=== PATIENT | male | born 1950 | race Caucasian/White ===

== ENCOUNTER 2018-04-16 08:47 | Emergency (ER) | payer BC ==
[~2018-04-16 08:47] MED LIST changes: -CLOP75TA
[2018-04-16 09:06] LABS: PLATELET COUNT, AUTOMATED 280 K/uL (150-450)
[2018-04-16] MEDS ORDERED: ONDANSETRON 4 MG/2 ML VIAL ONE (09:13)
[2018-04-16 09:15] LABS: INR 0.92
--- NOTE | 2018-04-16 09:41 | RADIOLOGY IMAGING REPORT ---
FACILITY: [facility] PATIENT NAME: Mitchell Hua : 1950 MR: [id number] V: [id number] EXAM DATE: [id number] ORDERING PHYSICIAN: NELIDA KAHN TECHNOLOGIST: Location: [facility] Patient: Mitchell Hua : 1950 Visit/Account:[id number] Date of Sevice: 04/16/[address] scan without contrast HISTORY: Possible stroke COMPARISONS: January 30, [address] report, images unavailable at the time of dictation. TECHNIQUE: Non-contrast head CT was performed with sagittal and coronal reformations. One of the following dose optimization techniques was utilized in the performance of this exam: autom ated exposure control; adjustment of the mA and/or kV according to patient size; or use of iterative reconstruction technique. Specific details can be referenced in the facility's radiology CT exam ope rational policy. FINDINGS: There is no intracranial hemorrhage, hydrocephalus or midline shift. The basal cisterns, tariq-white differentiation, and convexity sulci are maintained. Normal orbital soft tissues. Unchanged chronic right parietal scalp soft tissue thickening. Probable perivascular space in the anterior right thalamus region is unchanged measuring 6 mm. Multi ple bilateral additional basal ganglia perivascular spaces are unchanged. 3.5 mm hypodensity in the right frontal deep white matter, axial image 35 is new. Clear mastoid air cells. Opacification of the posterior left ethmoid air cell. Normal osseous struc tures. IMPRESSION: 1. No acute intracranial hemorrhage. 2. New 3.5 mm hypodensity in the right frontal deep white matter is favored to be chronic and may rep resent a chronic lacunar infarct or residua of chronic small vessel ischemic change. If there is concern for acute ischemia in this area brain MR may be warranted for further characteriz ation. 3. Multiple unchanged basal ganglia and anterior right thalamic perivascular spaces. Results were called to NELIDA KAHN on 04/16/2018 9:33 AM. Report Dictated By: Wilmar Hernández MD at 04/16/2018 9:22 AM Report E-Signed By: Wilmar Hernández MD at 04/16/2018 9:37 AM WSN:[id number]
--- NOTE | 2018-04-16 09:45 | RADIOLOGY IMAGING REPORT ---
FACILITY: [facility] PATIENT NAME: Mitchell Hua : 1950 MR: [id number] V: [id number] EXAM DATE: [id number] ORDERING PHYSICIAN: NELIDA KAHN TECHNOLOGIST: [place] [facility] [place] Hua : 1950 Visit/Account:[id number] Date of Sevice: 04/16/2018 EXAMINATION: CT Cervical spine without intravenous contrast HISTORY: Left arm weakness COMPARISON: None TECHNIQUE: Axial images were obtained from the skull base through the upper thoracic spine without I V contrast administration. Coronal and sagittal reformatted images were generated from the axial sour ce data. One of the following dose optimization techniques was utilized in the performance of this exam: autom ated exposure control; adjustment of the mA and/or kV according to patient size; or use of iterative reconstruction technique. Specific details can be referenced in the facility's radiology CT exam ope rational policy. FINDINGS: Vertebral bodies and posterior elements: Normal vertebral body heights. No fracture or osseous destr uction. Alignment: Normal. Disc Spaces: Mild multilevel disc space degeneration and uncovertebral arthropathy most pronounced at C3-4. Multilevel degenerative cervical foraminal narrowing. Soft tissues: Calcified degenerative pannus posterior to the dens. Visualized upper chest: Normal. IMPRESSION: No acute fracture or acute abnormality. Report Dictated By: Wilmar Hernández MD at 04/16/2018 9:28 AM Report E-Signed By: Wilmar Hernández MD at 04/16/2018 9:41 AM WSN:[id number]
[2018-04-16 09:51] VITALS: BP 143/95
[2018-04-16] MEDS ORDERED: CLOP75TA (09:51)
--- NOTE | 2018-04-16 09:59 | RADIOLOGY IMAGING REPORT ---
FACILITY: [facility] [place] PATIENT NAME: Mitchell Hua : 1950 MR: [id number] V: [id number] EXAM DATE: ORDERING PHYSICIAN: NELIDA KAHN TECHNOLOGIST: Location: [facility] Patient: Mitchell Hua : 1950 Visit/Account:[id number] Date of Sevice: 04/16/2018 EXAMINATION: CT head and neck angiogram HISTORY: Weakness TECHNIQUE: Noncontrast head CT was first performed with sagittal and coronal reformations. CT head an d neck angiogram was performed following the iv injection 75 mL Isovue-370. Sagittal and coronal MPR and coronal and axial MIPS reformats generated. Stenosis of the internal carotid arteries calculated using NASCET criteria. One of the following dose optimization techniques was utilized in the performance of this exam: autom ated exposure control; adjustment of the mA and/or kV according to patient size; or use of iterative reconstruction technique. Specific details can be referenced in the facility's radiology CT exam ope rational policy. COMPARISON: None. FINDINGS: Angiogram: Aortic arch and great vessels: Normal for age. Cervical Right CCA / ICA: Less than 10% proximal internal carotid artery stenosis secondary to athe rosclerotic plaque, otherwise normal for age. Cervical Left CCA / ICA: Normal for age. Vertebro-basilar: Arch origin of the left vertebral artery, normal for age. Internal carotid arteries from the skull base through cavernous carotid arteries: Normal for age. EMELY circulation: Normal. MCA circulation: Normal. CATCHER HELPER circulation: Normal. PICA/AICA/superior cerebellar arteries: Normal. Venous sinuses and peripheral intracranial vasculature: Normal. Intracranial structures: Normal. Neck soft tissues: Normal. Upper chest: Normal. Head and neck osseous structures: No acute finding. IMPRESSION: 1. Less than 10% proximal right internal carotid artery stenosis secondary to atherosclerotic plaque . 2. Otherwise normal for age head and neck arterial vasculature without arterial thrombosis, aneurysm or dissection. Report Dictated By: Wilmar Hernández MD at 04/16/2018 9:41 AM Report E-Signed By: Wilmar Hernández MD at 04/16/2018 9:54 AM WSN:[id number]
--- NOTE | 2018-04-16 09:59 | RADIOLOGY IMAGING REPORT ---
[place] [facility] [place] NAME: Mitchell Hua : 1950 MR: [id number] V: [id number] EXAM DATE: ORDERING PHYSICIAN: NELIDA KAHN TECHNOLOGIST: Location: [facility] - [place], [place] Patient: Mitchell Hua : 1950 Visit/Account:[id number] Date of Sevice: 04/16/2018 EXAMINATION: CT head and neck angiogram HISTORY: Weakness TECHNIQUE: Noncontrast head CT was first performed with sagittal and coronal reformations. CT head an d neck angiogram was performed following the iv injection 75 mL Isovue-370. Sagittal and coronal MPR and coronal and axial MIPS reformats generated. Stenosis of the internal carotid arteries calculated using NASCET criteria. One of the following dose optimization techniques was utilized in the performance of this exam: autom ated exposure control; adjustment of the mA and/or kV according to patient size; or use of iterative reconstruction technique. Specific details can be referenced in the facility's radiology CT exam ope rational policy. COMPARISON: None. FINDINGS: Angiogram: Aortic arch and great vessels: Normal for age. Cervical Right CCA / ICA: Less than 10% proximal internal carotid artery stenosis secondary to athe rosclerotic plaque, otherwise normal for age. Cervical Left CCA / ICA: Normal for age. Vertebro-basilar: Arch origin of the left vertebral artery, normal for age. Internal carotid arteries from the skull base through cavernous carotid arteries: Normal for age. EMELY circulation: Normal. MCA circulation: Normal. AERONAUTICAL DESIGN ENGINEER circulation: Normal. PICA/AICA/superior cerebellar arteries: Normal. Venous sinuses and peripheral intracranial vasculature: Normal. Intracranial structures: Normal. Neck soft tissues: Normal. Upper chest: Normal. Head and neck osseous structures: No acute finding. IMPRESSION: 1. Less than 10% proximal right internal carotid artery stenosis secondary to atherosclerotic plaque . 2. Otherwise normal for age head and neck arterial vasculature without arterial thrombosis, aneurysm or dissection. Report Dictated By: Wilmar Hernández MD at 04/16/2018 9:41 AM Report E-Signed By: Wilmar Hernández MD at 04/16/2018 9:54 AM WSN:[id number]
[2018-04-16] MEDS ORDERED: DIPHTH/TETANUS/ACEL. PERTUSSIS IM ONLY ONE (10:00)
[2018-04-16] MEDS ORDERED: NS(*) 0.9% 50 ML BAG 50 ML ONE (10:44)
[2018-04-16] MEDS ORDERED: IOPAMIDOL 76% 75 ML INFUS BTL 75 ML ONE (10:44)
--- NOTE | 2018-04-16 12:34 | EKG ---
[place] [facility] [place] NAME: MIRTHA SOOD : [id number] MR: [id number] V: [id number] EXAM DATE: ORDERING PHYSICIAN: NELIDA KAHN TECHNOLOGIST: HUSSAIN Test Reason : STROKE ALERT Blood Pressure : / mmHG Vent. Rate : 056 BPM Atrial Rate : 110 BPM P-R Int : 220 ms QRS Dur : 102 ms QT Int : 470 ms P-R-T Axes : 028 -39 007 degrees QTc Int : 453 ms Sinus rhythm with 1st degree AV block Left axis deviation T flattening/inversion consistent with inferior ischemia vs normal variant No previous ECGs available Confirmed by FERN HOWELL ([id number]) on 04/16/2018 8:43:32 PM Referred By: Confirmed By:FERN HOWELL
--- NOTE | 2018-04-16 15:09 | ER Report ---
History and Physical Time Seen By MD: 15:09 Hx. of Stated Complaint: pt fell in garage this morning and could not get up, thinks about 445 am, laid on couch, when came home pt had L side facial droop and L side weakness HPI/ROS CHIEF COMPLAINT: Stroke alert Patient is a 67-year-old male here with left-sided facial droop, slurred speech, left upper and lower extremity weakness which started approximately 445. Last known normal was when his left for work shortly prior to that time. Patient reports having mechanical fall at approximately 445 when he called his who came home from work and noticed that he had a left-sided facial droop and weakness. EMS responded to the scene and called us while in route at which time a stroke alert was called, the patient was taken directly to CAT scan her and tele stroke was called. Patient was determined to be outside of the window for TPA. In the meantime, CTA head and neck was found to be unremarkable. Patient was transferred via helicopter to [facility] for neurological care and admission to the hospitalist service. Patient was hemodynamically stable at time of transfer. HISTORY OF PRESENT ILLNESS: REVIEW OF SYSTEMS: Constitutional: No fever, no chills. Eyes: No discharge, + right gaze preference ENT: No sore throat, + slurred speech, left facial droop Cardiovascular: No chest pain, no palpitations. Respiratory: No cough, no shortness of breath. Gastrointestinal: No abdominal pain, no vomiting. Genitourinary: No hematuria. Musculoskeletal: No back pain. Skin: No rashes. Neurological: + left facial droop, + left upper and lower extremity weakness, slurred speech Allergies: Coded Allergies: morphine (Verified Adverse Reaction, Intermediate, VOMITING, 10/11/15) Home Meds Reported Medications Clopidogrel Bisulfate (CLOPIDOGREL) 75 Mg Tablet 04/16/18 Metoprolol Tartrate (METOPROLOL TARTRATE) 25 Mg Tablet, 2 TAB PO QDAY, TAB 10/11/15 Lisinopril (LISINOPRIL) 40 Mg Tablet, 40 MG PO QDAY, TAB 10/11/15 Levothyroxine Sodium (LEVOTHYROXINE SODIUM) 50 Mcg Tablet, 50 MCG PO QDAY, TAB 10/11/15 Hydrochlorothiazide (HYDROCHLOROTHIAZIDE) 25 Mg Tablet, 1 TAB PO QDAY, TAB 10/11/15 Emerson-3 Fatty Acids (FISH OIL) 500 Mg Capsule, 500 MG PO, CAPSULE 10/11/15 Cetirizine Hcl (ZYRTEC) 10 Mg Capsule, 10 MG PO QDAY, CAPSULE 10/11/15 Atorvastatin Calcium (LIPITOR) 40 Mg Tablet, 2 TAB PO QDAY, TAB 10/11/15 Discontinued Reported Medications Ranitidine Hcl (ZANTAC) 150 Mg Tablet, 150 MG PO BID, TAB 10/11/15 Oxycodone Hcl/Acetaminophen (OXYCODONE-ACETAMINOPHEN 5-325) 1 Each Tablet, 2 EACH PO Q4H, TAB 10/11/15 Discontinued Scripts Cyclobenzaprine Hcl (CYCLOBENZAPRINE HCL) 10 Mg Tablet, 10 MG PO TID for Muscle Relaxant, #15 TAB Prov:VALERY UNDERWOOD DO 10/11/15 Hx Smoking: No Smoking Status: Former Smoker Exposure to Second Hand Smoke?: No Hx Substance Use Disorder: No Hx Alcohol Use: Yes (OCC USE) Constitutional Vital Sign - Last 24 Hours 04/16/18 04/16/18 04/16/18 04/16/18 08:47 08:52 08:53 08:56 Temp 97.1 Pulse ? 59 Resp 16 B/P (MAP) 132/73 (92) 145/97 Pulse Ox 94 O2 Delivery Nasal Cannula 04/16/18 04/16/18 04/16/18 04/16/18 08:57 09:02 09:07 09:08 Pulse ? B/P (MAP) 145/97 (113) 04/16/18 04/16/18 04/16/18 04/16/18 09:12 09:17 09:22 09:27 Pulse 59 60 59 60 Resp 21 19 22 26 Pulse Ox 95 91 96 93 04/16/18 04/16/18 04/16/18 04/16/18 09:32 09:37 09:42 09:47 Pulse 57 ??? 60 61 Resp 17 26 21 10 Pulse Ox 95 95 94 94 04/16/18 04/16/18 04/16/18 04/16/18 09:51 09:52 10:02 10:07 Pulse ??? 63 ??? Resp 8 18 B/P (MAP) 143/95 (111) Pulse Ox 94 96 04/16/18 04/16/18 04/16/18 04/16/18 10:12 10:17 10:22 10:25 Pulse ? 04/16/18 10:38 O2 Flow Rate 1.0 Physical Exam General Appearance: The patient is alert, has no immediate need for airway protection and no signs of toxicity. anxious appearing Eyes: Pupils equal and round no pallor or injection. ENT, Mouth: + left facial droop, scattered facial abrasions primarily to left side of his face Respiratory: There are no retractions, lungs are clear to auscultation. Cardiovascular: Regular rate and rhythm. Gastrointestinal: Abdomen is soft and non tender, no masses, bowel sounds normal. Neurological: + left facial droop, left upper and lower extremity weakness, slurred speech with diminished sensation, right gaze preference Skin: Warm and dry, no rashes. Musculoskeletal: Neck is supple non tender. Extremities are nontender, nonswollen and have full range of motion. DIFFERENTIAL DIAGNOSIS: After history and physical exam differential diagnosis was considered for ischemic stroke, electrolyte abnormality, hypoglycemia, intracranial hemorrhage, atypical migraine Medical Decision Making Data Points Result Diagram: 04/16/18 0830 04/16/18 0830 Laboratory Hematology Test 04/16/18 08:30 04/16/18 10:09 Red Blood Count 5.79 M/uL (4.00-5.60) Mean Corpuscular Volume 88.2 fL (80.0-96.0) Mean Corpuscular Hemoglobin 29.5 pg (26.0-33.0) Mean Corpuscular Hemoglobin Concent 33.4 g/dL (32.0-36.0) Red Cell Distribution Width 14.6 % (11.5-14.5) Mean Platelet Volume 7.9 fL (7.2-11.1) Neutrophils (%) (Auto) 79.4 % (39.4-72.5) Lymphocytes (%) (Auto) 10.5 % (17.6-49.6) Monocytes (%) (Auto) 7.0 % (4.1-12.4) Eosinophils (%) (Auto) 1.9 % (0.4-6.7) Basophils (%) (Auto) 1.2 % (0.3-1.4) Nucleated RBC Relative Count (auto) 0.0 /100WBC Neutrophils # (Auto) 8.7 K/uL (2.0-7.4) Lymphocytes # (Auto) 1.2 K/uL (1.3-3.6) Monocytes # (Auto) 0.8 K/uL (0.3-1.0) Eosinophils # (Auto) 0.2 K/uL (0.0-0.5) Basophils # (Auto) 0.1 K/uL (0.0-0.1) Nucleated RBC Absolute Count (auto) 0.01 K/uL Peripheral Blood Smear No Y/N Prothrombin Time 12.3 seconds (12.0-14.4) Prothromb Time International Ratio 0.92 Activated Partial Thromboplast Time 30 seconds (23-35) Sodium Level 139 mmol/L (137-145) Potassium Level 3.8 mmol/L (3.5-5.0) Chloride Level 100 mmol/L (98-107) Carbon Dioxide Level 29 mmol/L (22-30) Blood Urea Nitrogen 33 mg/dl (9-21) Creatinine 1.10 mg/dl (0.66-1.25) Glomerular Filtration Rate Calc > 60.0 Random Glucose 103 mg/dl (75-110) Calcium Level 9.7 mg/dl (8.4-10.2) Total Bilirubin 0.7 mg/dl (0.2-1.3) Aspartate Amino Transf (AST/SGOT) 31 U/L (0-35) Alanine Aminotransferase (ALT/SGPT) 45 U/L (0-56) Alkaline Phosphatase 92 U/L (0-126) Troponin I < 0.012 ng/ml Total Protein 7.5 g/dl (6.3-8.2) Albumin 4.0 g/dl (3.5-5.0) Whole Blood Glucose 126 mg/DL (75-110) Chemistry Test 04/16/18 08:30 04/16/18 10:09 White Blood Count 11.0 k/uL (4.5-11.0) Red Blood Count 5.79 M/uL (4.00-5.60) Hemoglobin 17.1 g/dL (14.0-18.0) Hematocrit 51.1 % (42.0-52.0) Mean Corpuscular Volume 88.2 fL (80.0-96.0) Mean Corpuscular Hemoglobin 29.5 pg (26.0-33.0) Mean Corpuscular Hemoglobin Concent 33.4 g/dL (32.0-36.0) Red Cell Distribution Width 14.6 % (11.5-14.5) Platelet Count 280 K/uL (150-450) Mean Platelet Volume 7.9 fL (7.2-11.1) Neutrophils (%) (Auto) 79.4 % (39.4-72.5) Lymphocytes (%) (Auto) 10.5 % (17.6-49.6) Monocytes (%) (Auto) 7.0 % (4.1-12.4) Eosinophils (%) (Auto) 1.9 % (0.4-6.7) Basophils (%) (Auto) 1.2 % (0.3-1.4) Nucleated RBC Relative Count (auto) 0.0 /100WBC Neutrophils # (Auto) 8.7 K/uL (2.0-7.4) Lymphocytes # (Auto) 1.2 K/uL (1.3-3.6) Monocytes # (Auto) 0.8 K/uL (0.3-1.0) Eosinophils # (Auto) 0.2 K/uL (0.0-0.5) Basophils # (Auto) 0.1 K/uL (0.0-0.1) Nucleated RBC Absolute Count (auto) 0.01 K/uL Peripheral Blood Smear No Y/N Prothrombin Time 12.3 seconds (12.0-14.4) Prothromb Time International Ratio 0.92 Activated Partial Thromboplast Time 30 seconds (23-35) Glomerular Filtration Rate Calc > 60.0 Calcium Level 9.7 mg/dl (8.4-10.2) Total Bilirubin 0.7 mg/dl (0.2-1.3) Aspartate Amino Transf (AST/SGOT) 31 U/L (0-35) Alanine Aminotransferase (ALT/SGPT) 45 U/L (0-56) Alkaline Phosphatase 92 U/L (0-126) Troponin I < 0.012 ng/ml Total Protein 7.5 g/dl (6.3-8.2) Albumin 4.0 g/dl (3.5-5.0) Whole Blood Glucose 126 mg/DL (75-110) Coagulation Test 04/16/18 08:30 Prothrombin Time 12.3 seconds Prothromb Time International Ratio 0.92 Activated Partial Thromboplast Time 30 seconds EKG/Imaging Monitor Interpretation: Normal Sinus Rhythm Imaging EXAMINATION: CT head and neck angiogram HISTORY: Weakness TECHNIQUE: Noncontrast head CT was first performed with sagittal and coronal reformations. CT head and neck angiogram was performed following the iv injection 75 mL Isovue-370. Sagittal and coronal MPR and coronal and axial MIPS reformats generated. Stenosis of the internal carotid arteries calculated using NASCET criteria. One of the following dose optimization techniques was utilized in the performance of this exam: automated exposure control; adjustment of the mA and/or kV according to patient size; or use of iterative reconstruction technique. Specific details can be referenced in the facility's radiology CT exam operational policy. COMPARISON: None. FINDINGS: Angiogram: Aortic arch and great vessels: Normal for age. Cervical Right CCA / ICA: Less than 10% proximal internal carotid artery stenosis secondary to atherosclerotic plaque, otherwise normal for age. Cervical Left CCA / ICA: Normal for age. Vertebro-basilar: Arch origin of the left vertebral artery, normal for age. Internal carotid arteries from the skull base through cavernous carotid arteries: Normal for age. EMELY circulation: Normal. MCA circulation: Normal. CONSUMER MARKETING ANALYST circulation: Normal. PICA/AICA/superior cerebellar arteries: Normal. Venous sinuses and peripheral intracranial vasculature: Normal. Intracranial structures: Normal. Neck soft tissues: Normal. Upper chest: Normal. Head and neck osseous structures: No acute finding. IMPRESSION: 1. Less than 10% proximal right internal carotid artery stenosis secondary to atherosclerotic plaque. 2. Otherwise normal for age head and neck arterial vasculature without arterial thrombosis, aneurysm or dissect EXAMINATION: CT head and neck angiogram HISTORY: Weakness TECHNIQUE: Noncontrast head CT was first performed with sagittal and coronal reformations. CT head and neck angiogram was performed following the iv injectio n 75 mL Isovue-370. Sagittal and coronal MPR and coronal and axial MIPS reformats generated. Stenosis of the internal carotid arteries calculated using NASCET criteria. One of the following dose optimization techniques was utilized in the performance of this exam: automated exposure control; adjustment of the mA and/or kV according to patient size; or use of iterative reconstruction technique. Specific details can be referenced in the facility's radiology CT exam operational policy. COMPARISON: None. FINDINGS: Angiogram: Aortic arch and great vessels: Normal for age. Cervical Right CCA / ICA: Less than 10% proximal internal carotid artery stenosis secondary to atherosclerotic plaque, otherwise normal for age. Cervical Left CCA / ICA: Normal for age. Vertebro-basilar: Arch origin of the left vertebral artery, normal for age. Internal carotid arteries from the skull base through cavernous carotid arteries: Normal for age. EMELY circulation: Normal. MCA circulation: Normal. CONSUMER MARKETING ANALYST circulation: Normal. PICA/AICA/superior cerebellar arteries: Normal. Venous sinuses and peripheral intracranial vasculature: Normal. Intracranial structures: Normal. Neck soft tissues: Normal. Upper chest: Normal. Head and neck osseous structures: No acute finding. IMPRESSION: 1. Less than 10% proximal right internal carotid artery stenosis secondary to atherosclerotic plaque. 2. Otherwise normal for age head and neck arterial vasculature without arterial thrombosis, aneurysm or dissection. ED Course/Re-evaluation ED Course Patient is a 67-year-old male here with left-sided facial droop, slurred speech, left upper and lower extremity weakness which started approximately 445. Last known normal was when his left for work shortly prior to that time. Patient reports having mechanical fall at approximately 445 when he called his who came home from work and noticed that he had a left-sided facial droop and weakness. EMS responded to the scene and called us while in route at which time a stroke alert was called, the patient was taken directly to CAT scan her and tele stroke was called. Patient was determined to be outside of the window for TPA. In the meantime, CTA head and neck was found to be unremarkable. Patient was transferred via helicopter to [facility] for neurological care and admission to the hospitalist service. Patient was hemodynamically stable at time of transfer. Decision to Disposition Date: Apr 16, 2018 Decision to Disposition Time: 10:40 Depart Departure Latest Vital Signs Vital Signs Date Time Temp Pulse Resp B/P (MAP) Pulse Ox O2 Delivery O2 Flow Rate FiO2 04/16/18 10:38 1.0 04/16/18 10:25 ??? 04/16/18 10:02 18 96 04/16/18 09:51 143/95 (111) 04/16/18 08:56 97.1 Nasal Cannula Impression: Primary Impression: CVA (cerebral vascular accident) Condition: Improved Disposition: XFER TO [facility] (transfer to [facility]) Referrals: KISHOR OMER MD (PCP) Departure Forms: Medications Reconciliation, Patient Portal Information, ER Transition Record NELIDA KAHN DO Apr 16, 2018 15:09
== END 2018-04-16 10:30 | disposition short-term general hospital (02) ==
LOC: ER 08:53
DX: I63.9 Cerebral infarction, unspecified (principal)
CPT/HCPCS: 36416; 70450; 70496; 70498; 72125; 82948; 84484; 85025; 85610; 85730; 90471; 90715; 93005; 96374; 99285; J2405; J7050; Q9967; 82040; 82247; 82310; 82374; 82435; 82565; 82947; 84075; 84132; 84155; 84295; 84450; 84460; 84520

== ENCOUNTER → 2018-04-16 | Outpatient (REF) ==
[~2018-04-16] MED LIST: ASPI81TA15 PO; ATOR40TA24 PO; CETI10CA8 PO; CLOP75TA; CYCL10TA29 PO; GINK1TAB2 PO; HYDR-2966 PO; IBU600 PO; LEVO50TA86 PO; LISI-374 PO; LOR5/325 PO; METO25TA93 PO; OMEG500C7 PO; OXYC-373 PO; QUIN10TA24 PO; RANI-366 PO; RANI-445 PO; ROSU20TA23 PO; SIMV-1 PO; [UNRECOGNIZED DRUG - CODE] PO
== END ==
LOC: AMB 09:37
PROVIDERS: ATTEND Nurse Practitioner
DX: I63.9 Cerebral infarction, unspecified (principal)

== ENCOUNTER → 2018-04-16 | Outpatient (CLI) | payer BC | LOC: AMB 08:22 | PROVIDERS: ATTEND Nurse Practitioner | DX: R47.81 Slurred speech (principal); R53.1 Weakness; R29.810 Facial weakness; W18.30XA Fall on same level, unspecified, initial encounter | CPT/HCPCS: A0425; A0427 ==

== ENCOUNTER → 2018-05-29 | Outpatient (CLI) | payer BC, MEDICARE ==
[~2018-05-29] MED LIST changes: +ASPI-1471 PO; +ATOR-1 PO; +BACL-1 PO; +CLOP75TA; +CLOP75TA PO; +DICL100G39 TOP; +ESCI10TA8 PO; +EZET10TA41 PO; +OMEP-125 PO; +PNEU0.5D3 IM; +TAMS0.4C70 PO; +TRAZ50TA34 PO; +[UNRECOGNIZED DRUG - CODE] TOP
[2018-05-29 09:08] LABS: PLATELET COUNT, AUTOMATED 312 K/uL (150-450)
[2018-05-29 09:50] LABS: LDL CHOLESTEROL 102 mg/dl
== END ==
LOC: LAB 08:43
PROVIDERS: ATTEND Internal Medicine
DX: Z12.5 Encounter for screening for malignant neoplasm of prostate (principal); I10 Essential (primary) hypertension; E78.49 Other hyperlipidemia; E03.9 Hypothyroidism, unspecified; I63.411 Cerebral infarction due to embolism of right middle cerebral artery
CPT/HCPCS: 36415; 81001; 82040; 82247; 82310; 82374; 82435; 82465; 82565; 82947; 83718; 84075; 84132; 84153; 84155; 84295; 84439; 84443; 84450; 84460; 84478; 84520; 84550; 85025

== ENCOUNTER → 2018-06-06 | Outpatient (CLI) | payer BC ==
[~2018-06-06] MED LIST changes: +LISI-362 PO; +LORA-1456 PO
== END ==
LOC: LAB 10:25
PROVIDERS: ATTEND Urology
DX: R97.20 Elevated prostate specific antigen [PSA] (principal)
CPT/HCPCS: 36415; 84154

== ENCOUNTER → 2018-07-16 | Outpatient (CLI) | payer BC ==
[~2018-07-16] MED LIST changes: +APIX5TAB PO; +BACL-51 PO; +CLON-388 PO; +ESCI20TA8 PO
[2018-07-16 16:42] LABS: PLATELET COUNT, AUTOMATED 358 K/uL (150-450)
[2018-07-16 17:02] LABS: LDL CHOLESTEROL 61 mg/dl
== END ==
LOC: LAB 16:13
PROVIDERS: ATTEND Internal Medicine
DX: F41.9 Anxiety disorder, unspecified (principal); I48.91 Unspecified atrial fibrillation; I10 Essential (primary) hypertension; I63.9 Cerebral infarction, unspecified
CPT/HCPCS: 36415; 81001; 82040; 82247; 82310; 82374; 82435; 82465; 82565; 82947; 83718; 84075; 84132; 84155; 84295; 84439; 84443; 84450; 84460; 84478; 84520; 85025

== ENCOUNTER 2018-08-16 10:00 | Outpatient (RCR) | payer BC ==
--- NOTE | 2018-07-02 11:20 | PT INITIAL EVALUATION ---
MEDICAL DIAGNOSIS: Post-CVA TREATMENT DIAGNOSIS: Altered gait and balance, L LE weakness DATE OF ONSET: 04/16/18 SUBJECTIVE: Mitchell Hua (Marty) presents to PT to continue working on his gait and balance, L LE strength after a R CVA 04/16/18. 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 Bran lives in a single level home, uses a Lofstrand crutch for household and house/car ambulation. He relates he's fallen during anxiety attacks. 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 OBJECTIVE: Posture: WB R>L LE unless cued, heels 6" apart, steady. ROM: L ankle AROM DF 15 degrees, L knee AROM extension -5 deg., PROM flexion 125 deg. pain with over pressure and looseness. R LE AROM WNL. Strength: L quad 4/5, L knee pain, hamstrings 4+/5, ankle DF 5-/5, peroneals 4/5. Mobility: Sit<>stand without UE use, leans R without mirror, able to stay midline with mirror. Gait: R Lofstrand crutch with L foot intermittently passing R foot, ankle DF clearing the floor in swing phase. Bran uses handrail and able to stair use with eccentric L quad control. Bran turns L/R >4 seconds, L with mild imbalance, normal balance with balance control. Balance: Double limb support. Bran's able to clear a 4" curb with stopping, lean R and L foot clears the curb. Other Objective Findings: BP 126/79, O2 on room air with gait 89%, HR 80. ASSESSMENT: Mitchell Hua presents wtih altered gait, balance, fall risk. He wants to focus on his L UE functional improvement, so we'll focus on weekly visits to advance [facility], 5 weeks. Short Term Goals 5 weeks: Dynamic Gait Index 17 to reduce fall risk and improve gait stability, Mitchell ambulates with Lofstrand crutch 50 feet without stopping. Patient's Goals Have better balance and gait in the house and community. PLAN: Patient to be seen for Strengthening/condition, Stretching, Neuromuscular Re-ed, Gait Trg/Balance Trg, Home Exercise Program for 1x/Week for 5 weeks Thank you for this referral. If you have any questions, comments, or concerns about this report or plan, please contact me at . [facility]
--- NOTE | 2018-07-02 14:58 | OT INITIAL EVALUATION ---
SUBJECTIVE: Patient is a 67 year old right hand dominate male referred to OP OT services for evaluation and treatment status post CVA which occurred on 04/16/2018. Patient was transferred to [facility] and then transitioned to [facility] where he was receiving all therapist services. Patient was discharged on 05/20/2018. Patient reports of previous left shoulder problems after a TSA surgery in October of 2017. Patient was in the process of setting up an appointment with Dr. Cerda when he had his CVA. Patient states that his assists with self cares including assistance with bathing. Patient reports that he is able to take himself to and from the bathroom. Patient reports that he was independent with all of this ADLs, and IADLs prior to his CVA. Patient used Lofstrand crutches for mobility assistance at home. Uses a wheelchair for community mobility to help with energy conservation. Previous Medical History: please refer to chart Occupation: N/A OBJECTIVE: ROM: AROM Right Left Shoulder Flexion WFL unable to move Shoulder Extension WFL unable to move Shoulder Abduction WFL unable to move Elbow Flexion/Extension WFL functional, but slow movements and weak Wrist Flexion/Extension WFL functional, but slow movements and weak Strength: MMT: Right Left Shoulder Flexion 5/5 2/5 Shoulder Extension 5/5 2/5 Shoulder Abduction 5/5 2/5 Elbow Flexion/Extension 5/5 3-/5 Wrist Flexion/Extension 5/5 3-/5 (5= normal, 4= good, 3= fair, 2= poor, 1= trace) Gas Distribution And Emergency Clerk Right = 87# (Age/gender normative= 91.1#) Left=13.7# (Age/gender normative= 76.8#) Lateral Pinch Right = 22.3# (Age/gender normative= 23.4#) Left= 7.7# (Age/gender normative= 22#) 3 Point Pinch Right = 18.3# (Age/gender normative= 21.4#) Left= 5.5# (Age/gender normative= 21.2#) Sensation: pins and needles in left hand Vision: no reports of changes in vision Special Test: 9 Hole Peg Test (dexterity) Right= 26 seconds (Age/gender normative= 20.7 seconds) Left= 3 minutes and 2 seconds-needed to modify the test by handng the peg to his right hand and then he placed this into his left hand (Age/gender normative= 22.9 seconds) ASSESSMENT Patient demonstrates with decreased AROM of the left UE-this movement maybe compounded by a 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 The decrease in strength and coordination have affected patient's independence with his ADLs and IADLs. Patient to benefit from skilled OT services to increase functional use of the left hand. Short Term Goals 1.Patient will increase graphic design specialist strength on the left hand by 5# in order to hold objects with the left hand. 2.Patient will demonstrate the ability to kylee and doff a shirt without assistance. 3.Patient will increase left lateral pinch by 3 # in order to open up containers. 4.Patient will completed the 9 Hole Peg test with the left hand without modifications. PLAN: Plan to see patient 2 times a week for 7 weeks to increase functional of left UE and hand to improve independence with ADLs and IADLs. Plan of care to include ther ex, ther act, self cares, energy conservation Thank you for this referral. If you have any questions, concerns, or comments about this report or plan, please contact me at [phone]. Elaine Stark MS, OTR/L Occupational Therapist PAMELA
--- NOTE | 2018-07-08 13:02 | SPEECH INITIAL EVALUATION ---
SPEECH THERAPY skin care specialist: Chelsy Decker MS, CCC-GAME PROGRAMMER Type of Assessment: Cognitive Linguistic Assessment Patient: Mitchell Hua : 1950 Evaluation Date: 07-02-18 BACKGROUND Patient is a 67 year old right hand dominate male referred to ST for evaluation and treatment post CVA on 04/16/2018. The patient lives with his spouse who is currently assisting with ADLs and IADLs including driving and bathing. PLOF includes independence with all ADLs/IADLs. He reports he did not lose consciousness during and has a detailed memory of events prior/during/after the event. VOICE/ SPEECH/ORAL MOTOR Mild L side facial droop Left side lingual deviation. Patient reports his spouse comments on reduced vocal volume and occasional slurred speech sounds. None were noted by the ST during the evaluation. Speech intelligibility at 100% DYSPHAGIA Pt reports no problems with oral, pharyngeal, or esophageal phase of swallow. Immediately following CVA the pt received and modified barium swallow. His diet was modified to nectar liquids and either pureed or mechanical soft foods and he was instructed to turn use L-side head turns with swallow to reduce risk of aspiration. Diet was upgraded to DI prior to leaving acute rehab and the patient is no longer using the head turn technique. He reports dysphagia has resolved. COGNITION/COMMUNICATION [place] Cognitive Assessment (MOCA) and informal evaluation procedures. Pt obtained a 27/30 on the MOCA, which is considered WNL. Pt lost points only on Delayed Recall subtest. Pt participated in extensive conversation during the assessment regarding the events prior to and following the CVA as well as changes to his functional status and problems with emotional lability. No cognitive-linguistic deficits were noted during these exchanges. The patient reports significant difficulty managing his emotions post CVA though this has improved somewhat. He also reports his spouse is quite angry and this has been a stressful time for both of them. Verbal and written information about [facility] was provided. The patient reported he had attempted to contact [facility] over the last week but had so far been unsuccessful. He will continue to try and set this up. SUMMARY Dysphagia: resolved Cognitive-Linguistic: Emotional lability, mild short term recall deficits The patient has a total of 20 rehab visits total for ST/PT/OT. At this time, ST and the patient agree that rehab priority is with PT and OT to increase independent mobility and functional use of his dominant arm/hand to allow for return to PLOF. The patient was provided with facial/lingual exercises to address facial droop prior to DC from acute rehab. He was instructed to continue with this home program. He is welcome to return to ST in the future if his priorities or symptoms change. RECOMMENDATION Contact [facility] form counseling services Continue with ST home program No further ST at this time. Thank you for this referral. Please call [phone] (outpatient rehab) at [facility] to contact the GAME PROGRAMMER. Respectfully, Chelsy Decker M.S., [facility]-GAME PROGRAMMER PAMELA
--- NOTE | 2018-08-16 12:00 | PT PLAN OF CARE ---
Physician: Dr. Thierno Herndon Patient is being seen: 2x/week Therapist: Phoebe Lee, PT Medical Diagnosis: Post-CVA Treatment Diagnosis: Altered gait and balance, L LE weakness Date of Onset: 04/16/18 Date of Initial Evaluation: 07/02/18 Date patient was last seen: 07/30/18 Number of treatments: 5 Number of cancellations/No shows: 0 INTERVENTIONS: Strengthening/condition Stretching Neuromuscular Re-ed Gait Trg/Balance Trg Home Exercise Program GOALS: 5 weeks: Dynamic Gait Index 17 to reduce fall risk and improve gait stability, Mitchell ambulates with Lofstrand crutch 50 feet without stopping. PATIENT'S GOAL: Have better balance and gait in the house and community. Patient Compliance: Excellent Prognosis: Good Reasons for discontinuing therapy: S: Mitchell chose to stop PT after 07/30/18 to save his visits for OT. He's used up all his visits now. O: Gait: 80 feet with Lofstrand crutch, leans R, step through gait pattern. Dynamic Gait Index wasn't done on the . A/P: Mitchell improved gait endurance and quality. I'll DC PT. Thank you. PAMELA
--- NOTE | 2018-08-16 15:21 | OT DISCHARGE SUMMARY ---
SUBJECTIVE: Patient is a 67 year old right hand dominate male referred to OP OT services for evaluation and treatment status post CVA which occurred on 04/16/2018. Patient has completed 12 treatment sessions. Previous Medical History: please refer to chart Occupation: N/A OBJECTIVE: ROM: AROM Right Left Shoulder Flexion WFL approx 90* Shoulder Extension WFL WFL Shoulder Abduction WFL approx 90* Elbow Flexion/Extension WFL WFL-coordination still challenging Wrist Flexion/Extension WFL WFL Strength: MMT: Right Left Shoulder Flexion 5/5 2+/5 Shoulder Extension 5/5 2+/5 Shoulder Abduction 5/5 2+/5 Elbow Flexion/Extension 5/5 3/5 Wrist Flexion/Extension 5/5 3/5 (5= normal, 4= good, 3= fair, 2= poor, 1= trace) Proof Operator Right = 87# (Age/gender normative= 91.1#) Left=20.7 (Age/gender normative= 76.8#) Lateral Pinch Right = 22.3# (Age/gender normative= 23.4#) Left=11.3# (Age/gender normative= 22#) 3 Point Pinch Right = 18.3# (Age/gender normative= 21.4#) Left=7.3# (Age/gender normative= 21.2#) Sensation: pins and needles in left hand Vision: no reports of changes in vision Special Test: 9 Hole Peg Test (dexterity) Right= 26 seconds (Age/gender normative= 20.7 seconds) Left= 3 minutes and 2 seconds-needed to modify the test by handng the peg to his right hand and then he placed this into his left hand (Age/gender normative= 22.9 seconds) ASSESSMENT 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 Coordination of the left hand is still difficult and patient would benefit from continued OT services to address functional use of the left hand. Short Term Goals 1.Patient will increase refining machine operator strength on the left hand by 5# in order to hold objects with the left hand. met 2.Patient will demonstrate the ability to kylee and doff a shirt without assistance. met 3.Patient will increase left lateral pinch by 3 # in order to open up containers. met 4.Patient will completed the 9 Hole Peg test with the left hand without modifications. not met PLAN: Authorized number of visits for patient's commercial insurance have been exhausted and patient will be discharged from OT services at this time. Patient is in the process of getting authorization for additional visits through his [facility] benefit. Will discharge patient at this time and will await for VA authorization. Thank you for this referral. If you have any questions, concerns, or comments about this report or plan, please contact me at [phone]. Elaine Stark MS, OTR/L Occupational Therapist PAMELA
[2018-08-19] MEDS ORDERED: SIL50 PO (11:23)
== END 2018-08-16 18:00 | disposition home or self-care (01) ==
LOC: PT 10:00
PROVIDERS: ATTEND Internal Medicine
DX: I69.398 Other sequelae of cerebral infarction (principal); M62.81 Muscle weakness (generalized); R26.89 Other abnormalities of gait and mobility; E07.9 Disorder of thyroid, unspecified; Z87.891 Personal history of nicotine dependence; I10 Essential (primary) hypertension; E78.5 Hyperlipidemia, unspecified; M25.511 Pain in right shoulder; Z96.652 Presence of left artificial knee joint; M25.562 Pain in left knee
CPT/HCPCS: 97162; 97165; 97168

== ENCOUNTER → 2018-11-08 | Outpatient (CLI) | payer BC ==
[~2018-11-08] MED LIST changes: +CLON0.5T66 PO; +SIL50 PO
--- NOTE | 2018-11-08 15:39 | RADIOLOGY IMAGING REPORT ---
FACILITY: [facility] PATIENT NAME: Mitchell Hua : 1950 MR: [id number] V: [id number] EXAM DATE: ORDERING PHYSICIAN: MIRTA PAREDES TECHNOLOGIST: Location: [facility] Patient: Mitchell Hua : 1950 Visit/Account:[id number] Date of Sevice: 11/08/2018 EXAMINATION: Abdominal ultrasound complete History: Liver cysts COMPARISON STUDIES: Correlation made with prior CT scan 06/07/2018 FINDINGS: Gallbladder: Gallbladder is normal. There is no cholelithiasis or pericholecystic fluid. Gallbladde r wall thickness is normal. No sonographic Patten sign is present. Liver: There are multiple cysts identified within the liver, the largest is along the inferomedial ma rgin of the right lobe measuring 3.2 x 5.4 x 4.3 cm. There is no solid mass or intrahepatic ductal d ilatation. Portal vein is patent. Surface of the liver is smooth Common duct: normal 2-3 mm. Pancreas: Normal Spleen: negative Kidneys: Right kidney measures 9.7 x 6.3 x 7.7 cm. Left kidney measures 10.5 x 6.4 x 5.4 cm. Cortic al thickness and echogenicity is normal bilaterally. Upper abdominal aorta and IVC: negative Ascites: none IMPRESSION: 1. Multiple cysts identified within the liver the largest measuring 5.4 cm in maximal dimension base d on ultrasound measurements. No solid masses are identified. 2. Remainder of the examination is normal. Report Dictated By: Ashley Sauceda MD at 11/08/2018 3:29 PM Report E-Signed By: Ashley Sauceda MD at 11/08/2018 3:34 PM WSN:[email or web address]
== END ==
LOC: US 01:21
PROVIDERS: ATTEND Internal Medicine
DX: K76.89 Other specified diseases of liver (principal); I63.9 Cerebral infarction, unspecified; I10 Essential (primary) hypertension; I48.91 Unspecified atrial fibrillation; E78.5 Hyperlipidemia, unspecified
CPT/HCPCS: 76700

== ENCOUNTER → 2018-11-18 | Outpatient (CLI) | payer BC ==
[~2018-11-18] MED LIST changes: +LISI20TA29 PO; -OMEP-125 PO; +OMEP-126 PO; -RANI-366 PO; +RANI-54 PO; -TRAZ50TA34 PO; +TRAZ50TA52 PO
--- NOTE | 2018-11-18 12:10 | EKG ---
FACILITY: [facility] PATIENT NAME: MIRTHA SOOD : [id number] MR: [id number] V: [id number] EXAM DATE: ORDERING PHYSICIAN: MIRTA PAREDES TECHNOLOGIST: BRENNON Test Reason : AFIB Blood Pressure : / mmHG Vent. Rate : 045 BPM Atrial Rate : 045 BPM P-R Int : 216 ms QRS Dur : 104 ms QT Int : 468 ms P-R-T Axes : 043 -34 035 degrees QTc Int : 404 ms Sinus bradycardia with 1st degree AV block Left axis deviation Abnormal ECG When compared with ECG of 07-JUN-2018 16:43, No significant change was found Confirmed by MIRTA PAREDES ([id number]) on 11/19/2018 1:09:59 PM Referred By: BRAULIO LOPEZ Confirmed By:MIRTA PAREDES
== END ==
LOC: RESP 10:42
PROVIDERS: ATTEND Internal Medicine
DX: R94.31 Abnormal electrocardiogram [ECG] [EKG] (principal)

== ENCOUNTER 2018-11-19 10:39 | Outpatient (RCR) | payer OTHER ==
--- NOTE | 2018-09-17 09:35 | OT INITIAL EVALUATION ---
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 Patient was previously seen by OT services from 07/02/18-08/16/18 for 12 visits. Patient was discharged from services due to no more visits available. Patient has 12 more authorized visits. Previous Medical History: please refer to chart Occupation: N/A OBJECTIVE: ROM: AROM Right Left Shoulder Flexion WFL 90* Shoulder Extension WFL WFL Shoulder Abduction WFL 90* Elbow Flexion/Extension WFL WFL Wrist Flexion/Extension WFL WFL Strength: MMT: Right Left Shoulder Flexion 5/5 3/5 Shoulder Extension 5/5 3/5 Shoulder Abduction 5/5 3/5 Elbow Flexion/Extension 5/5 3/5 Wrist Flexion/Extension 5/5 3/5 (5= normal, 4= good, 3= fair, 2= poor, 1= trace) Nursing Assoc Right = 79.3# (Age/gender normative= 91.1#) Left=21.5# (Age/gender normative= 76.8#) Lateral Pinch Right = 23.6# (Age/gender normative= 23.4#) Left= 11# (Age/gender normative= 22#) 3 Point Pinch Right = 20.4# (Age/gender normative= 21.4#) Left= 9# (Age/gender normative= 21.2#) Sensation: numb along the left UE side, temperature changes increase hypersensitivity Vision: no reports of changes in vision Special Test: 9 Hole Peg Test (dexterity) Right= 28 seconds (Age/gender normative= 20.7 seconds) Left= 2 minutes and 49 seconds (Age/gender normative= 22.9 seconds) ASSESSMENT Patient continues to demonstrate with decreased AROM of the left UE-this movement is affected by a 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 Patient has seen his orthopedic surgeon and the plan is to redo a shoulder surgery in the near future. 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 From the last session, patient has not regressed in the functional use of the left hand. The decrease in strength and coordination does have affected on the patient's independence with his ADLs and IADLs. Patient will benefit from skilled OT services to increase functional use of the left hand. Short Term Goals 1.Patient will increase creasing machine operator strength on the left hand by 5# in order to hold objects with the left hand. 2.Patient will increase left lateral pinch by 2 # in order to open up containers. 3.Patient will completed the 9 Hole Peg test with the left hand under 2 minutes and 30 seconds in order to complete ADLs in a timely manner. PLAN: Plan to see patient 2 times a week for 6 weeks for a total of 12 visits.to increase functional of left UE and hand to improve independence with ADLs and IADLs. Plan of care to include ther ex, ther act, self cares, energy conservation Thank you for this referral. If you have any questions, concerns, or comments about this report or plan, please contact me at [phone]. Elaine Stark MS, OTR/L Occupational Therapist Provider Signature Date MTDD
--- NOTE | 2018-11-19 13:25 | OT DISCHARGE SUMMARY ---
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 Patient was previously seen by OT services from 07/02/18-08/16/18 for 12 visits. Patient has used the additional 12 authorized visits so this will be his last session, until he is authorized for more visits per his insurance carrier. Patient did report this last session that he was not feeling well. He was tired. Had some testing yesterday and stated that his heart rate was low-40 BPM. 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 = 79.3# (Age/gender normative= 91.1#) Left=21.5#, now 16.3# (Age/gender normative= 76.8#) Lateral Pinch Right = 23.6# (Age/gender normative= 23.4#) Left= 11#, now 10.3# (Age/gender normative= 22#) 3 Point Pinch Right = 20.4# (Age/gender normative= 21.4#) Left= 9#, now 6.8# (Age/gender normative= 21.2#) Sensation: continued numb along the left UE side, temperature changes increase hypersensitivity Vision: no reports of changes in vision Special Test: 9 Hole Peg Test (dexterity) Right= 28 seconds (Age/gender normative= 20.7 seconds) Left= 2 minutes and 49 seconds, now 2 minutes and 39 seconds (Age/gender normative= 22.9 seconds) ASSESSMENT Patient continues to demonstrate with decreased AROM of the left UE-this movement is affected by a 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 Patient has seen his orthopedic surgeon and the plan is to have another shoulder surgery. 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 Patient did not do as well on the re-evaluation today compared to the evaluation. The decrease in strength and coordination does have affected on the patient's independence with his ADLs and IADLs. Patient would benefit from additional skilled OT visits to increase functional use of the left hand. 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 not met 2.Patient will increase left lateral pinch by 2 # in order to open up containers. not met 3.Patient will completed the 9 Hole Peg test with the left hand under 2 minutes and 30 seconds in order to complete ADLs in a timely manner. partially met PLAN: Plan to discharge patient from OT services at this time as patient does not have any more authorized visits per his insurance carrier. Will plan to treat patient again if more visits are authorized. Thank you for this referral. If you have any questions, concerns, or comments about this report or plan, please contact me at [phone]. Elaine Stark MS, OTR/L Occupational Therapist Provider Signature Date MTDD
== END 2018-11-19 18:00 | disposition home or self-care (01) ==
LOC: OT 10:39
PROVIDERS: ATTEND Nurse Practitioner Family
DX: I69.398 Other sequelae of cerebral infarction (principal)
CPT/HCPCS: 97165; 97168

== ENCOUNTER → 2018-11-21 | Outpatient (CLI) | payer OTHER ==
--- NOTE | 2018-11-25 17:19 | RT HOLTER TEST ---
FACILITY: [facility] PATIENT NAME: MIRTHA SOOD : [id number] MR: [id number] V: [id number] EXAM DATE: ORDERING PHYSICIAN: TIESHA KHAN TECHNOLOGIST: Giancarlo Hook-up date: 2018-11-21 11:22:00 Duration: 24:00:00 Test Indications: Paroxsymal A-FIB Medications: SEE LIST 34727 QRS complexes 1396 Ventricular ectopics which represent 1 % of total QRS comp. 107 Supraventricular ectopics which represent <1 % of total QRS comp. * Paced QRS complexes which represent % of total QRS comp. VENTRICULAR ECTOPY 1366 Isolated 39 Bigeminal Cycles 15 Couplets 0 Runs 0 Beats in Runs * Beats LONGEST at * BPM at :: -- * Beats FASTEST at * BPM at :: -- SUPRAVENTRICULAR ECTOPY 83 Isolated 9 Couplets 2 Runs 6 Beats in Runs 3 Beats LONGEST at 94 BPM at 18:04:37 2018-11-21 3 Beats FASTEST at 94 BPM at 18:04:37 2018-11-21 HEART RATES 38 MIN at 03:38:54 2018-11-22 52 AVG 98 MAX at 17:43:17 2018-11-21 LONGEST RR 2.056 secs at 05:22:25 2018-11-22 S-T LEVELS Channel 1 -12.800 mm MIN at 11:22:00 2018-11-2112.800 mm MAX at 11:22:00 2018-11-21 Channel 3 -12.800 mm MIN at 11:22:00 2018-11-2112.800 mm MAX at 11:22:00 2018-11-21 Sinus rhythm Marked sinus bradycardia Premature ventricular complexes Premature supraventricular complexes Confirmed by KISHOR JONES ([id number]) on 11/25/2018 5:19:41 PM Referred By: Overread By: KISHOR JONES
== END ==
LOC: RESP 02:14
PROVIDERS: ATTEND Internal Medicine Clinical Cardiac Electrophysiology
DX: I48.0 Paroxysmal atrial fibrillation (principal)
CPT/HCPCS: 93225; 93226

== ENCOUNTER → 2018-11-23 | Outpatient (CLI) | payer BC, OTHER ==
[2018-11-23 12:32] LABS: PLATELET COUNT, AUTOMATED 267 K/uL (150-450)
[2018-11-23 12:49] LABS: LDL CHOLESTEROL 77 mg/dl
== END ==
LOC: LAB 11:37
PROVIDERS: ATTEND Internal Medicine
DX: E78.5 Hyperlipidemia, unspecified (principal); I63.9 Cerebral infarction, unspecified; I10 Essential (primary) hypertension; R00.1 Bradycardia, unspecified
CPT/HCPCS: 36415; 82040; 82247; 82310; 82374; 82435; 82465; 82565; 82947; 83718; 84075; 84132; 84155; 84295; 84439; 84443; 84450; 84460; 84478; 84520; 85025

== ENCOUNTER 2018-11-28 09:45 | Outpatient (RCR) | payer OTHER ==
--- NOTE | 2018-09-17 12:28 | SPEECH INITIAL EVALUATION ---
SPEECH THERAPY power system dispatcher: Chelsy Decker MS, CCC-LEADERSHIP INTERN Type of Assessment: Cognitive Linguistic Assessment Patient: Mitchell Hua : 1950 Evaluation Date: 09-16-18 BACKGROUND Patient is a 68 year old right hand dominate male referred to for evaluation and treatment post CVA on 04/16/2018. The patient received ST beginning 07-02-18 for only a few tx d/t insurance limitations. He still lives with his spouse who continues to assist with driving and bathing. He reports he is independent with medication management PLOF includes independence with all ADLs/IADLs. VOICE/ SPEECH/ORAL MOTOR Mild L side facial droop Moderate Left side lingual deviation. Occasional slurred speech reported with none noted by the ST during the evaluation. Speech intelligibility at 100% DYSPHAGIA Pt reports increased coughing between meals. He feels this may be related to medication. He will bring in medication list next tx. Oral Dysphagia: Anterior loss of liquids including saliva and thin liquids d/t L-side facial muscle weakness buccal/labial also resulting in asymmetry/droop. Lingual deviation to L-side present may contribute to anterior loss. Current diet is DI however he avoids some foods (meats/raw vegetables) d/t to missing upper dentition and poor bolus formation 2nd to lingual deficits. He is in the process of replacing dentures that were broken at the time of the CVA. COGNITION/COMMUNICATION [place] Cognitive Assessment (MOCA) administered during ST evaluation 07-02-18 with results of considered WNL. Pt reports no changes in cognition or language skills. No cognitive-linguistic deficits were noted during this evaluation. He reports his relationship with his spouse has improved since previous ST assessment. Verbal and written information about [facility] was provided at previous assessment. The patient has not made further attempts to contact [facility] and is not interested in pursuing at this time. SUMMARY Dysphagia: oral dysphagia with anterior loss of thin liquids and saliva and poor bolus formation d/t lingual/buccal/labial deficits Motor Speech: intermittently distorted speech sounds per patient report RECOMMENDATION ST 2/wk 6 (per limitations of medical insurance) to address oral stage dysphagia as described above. PROGNOSIS Excellent: past improvement, highly motivated. POC STG Pt will demonstrate lingual and facial symmetry and elimination of anterior loss of liquids. LTG Pt will demonstrate no oral dysphagia symptoms. Thank you for this referral. Please call [phone] (outpatient rehab) at [facility] to contact the LEADERSHIP INTERN. Respectfully, Chelsy Decker M.S., CCC-LEADERSHIP INTERN BOBD
--- NOTE | 2018-11-28 12:01 | SLP DISCHARGE NOTE ---
SPEECH THERAPY Discharge Note Physician: Thierno Herndon M.D. Clinician: Chelsy Deckre MS, CCC-TAILER OUT Type of Assessment: Dysphagia DC Patient: Mitchell Hua : 1950 Evaluation Date: 11-28-18 BACKGROUND Patient is a 68 year old right hand dominate male referred to ST for evaluation and treatment post CVA on 04/16/2018. The lives with his spouse who works time clock mechanic. Pt reports no recent falls at home or in community though he does report occasional close calls. Most recent fall reported to be in September,. VOICE/ SPEECH/ORAL MOTOR Pt decreased overall volume continues but voice is functional and increased volume can be achieved with increased effort. Mild L side facial droop continues but improvement is significant with facial/labial symmetry improved and pt report his perception of facial/labial symmetry is also increase Moderate Left side lingual deviation is decreased from moderate to minimal. Pt can achieve lingual symmetry with increased conscious effort. Lingual/Buccal strength is symmetrical L and R Pt reports decrease in frequency of slurred speech. TAILER OUT has not noted motor speech errors during ST sessions. Speech intelligibility at 100% DYSPHAGIA Mild oral and pharyngeal dysphagia persists. Patient swallows water/coffee with head turn to left to reduce coughing/choking. He reports this a successful technique. Deglutition of label drier solids is successful with increased mastication to increase moisture as well as small bites. Pt reports this technique successfully reduces dysphagia symptoms. No difficulty with pills. Anterior loss of liquid is reduced in frequency and severity but is not resolved. Anterior loss is minimized with increased focused concentration on swallow. Current diet is DI with regular/thin liquids (IDDS. Dentition: Pt received new upper/lower dentures end of October. He reports overall comfort is high but he occasionally bites his left side lower lip when dentures are in place. He does not usually wear his dentures to eat d/t decreased sense of taste and texture. EATING ASSESSMENT TOOL (EAT 10) : a patient self-scored rating scale of swallowing problems. Possible responses are based on a 1-4 numeric scale with 0= no problem, 4=severe problem. 1. My swallowing problem has caused me to lose weight. 0 2. My swallowing problem interferes with my ability to go out for meals. 0 3. Swallowing liquids takes extra effort. 1 4. Swallowing solids takes extra effort. 0 5. Swallowing pills takes extra effort. 0 6.Swallowing is painful 0 7. The pleasure of eating is affected by my swallowing. 2 8. When I swallow, food sticks in my throat. 1 9. I cough when I eat. 0 10. Swallowing is stressful. 1 A score of 3 or higher may indicate a swallowing problem. RECOMMENDATION DC from at this time. Pt encouraged to return to if he experiences regression Thank you for this referral. Please call [phone] (outpatient rehab) at [facility] to contact the TAILER OUT. Respectfully, Chelsy Decker M.S., [facility]-TAILER OUT MTDD
== END 2018-11-28 18:00 | disposition home or self-care (01) ==
LOC: ST 09:45
PROVIDERS: ATTEND Nurse Practitioner Family
DX: I69.398 Other sequelae of cerebral infarction (principal)

== ENCOUNTER 2018-12-12 08:15 | Outpatient (RCR) | payer OTHER ==
--- NOTE | 2018-09-18 16:21 | PT INITIAL EVALUATION ---
MEDICAL DIAGNOSIS: post cva TREATMENT DIAGNOSIS: same DATE OF ONSET: 04/13/18 SUBJECTIVE: Mitchell Hau presents to physical therapy with complaints of difficulty walking, putting full weight on his L LE following a CVA that occurred in March 2018. He reports that he has returned some of his strength in his leg and has transitioned from being in a wheelchair to ambulating with one LoF crutch. He reports that his L knee will buckle in and if he did not have the crutch he would fall. He reports that he would like to return to riding his motorcycles again but is unable to put all of his weight through the L LE and also continues to have difficulty with his L shoulder and L hand gripping. He denies any recent falls. He also reports that his L LE is longer than his R LE. He reports that his L LE became longer following a total knee replacement. He reports that the L knee replacement has never been right and continues to cause him a lot of pain. He reports that he has been feeling some low back pain and feels better if he maintains his body in an upright position with great posture and worse if he slumps. 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 Pain location is L knee. REHAB PROBLEM LIST: Increased Pain Decreased ROM Decreased Strength Decreased Endurance Decreased Balance Decreased Function Decreased ADL's Decreased Mobility Decreased Gait PREVIOUS MEDICAL HISTORY: See EMR OCCUPATION: Retired OBJECTIVE: Posture: He demonstrates B rounded shoulder, increased thoracic kyphosis, and decreased lumbar lordosis ROM: B LE's: WFL's Strength: R hip flexion, extension, abduction, adduction, R knee flexion and extension, R ankle PF and DF: 4+/5. L hip flexion, abduction, extension: 4-/5. L knee flexion and extension: 4/5. L ankle PF and DF: 4-/5. Special Tests: Sit to/from standing: he demonstrated reduced weightbearing on his L LE when moving up and down. Mobility: Modified Independent Gait: With gait mechanics with one LoF crutch: he demonstrated the following gait mechanics: R trunk lean with placing most of his weight on his R LE, decreased R step length, decreased L stance time, decreased pelvic rotation, decreased velocity; however, he did not demonstrate a loss of balance. Balance: Decreased balance in all conditions but becomes worse with decreased base of support. ASSESSMENT: Mitchell will benefit from skilled physical therapy addressing the listed impairments above to improve function and QOL. Short Term Goals 7 weeks: Pt will demonstrate significant improvements with his gait mechanics and will demonstrate equal weightbearing from the R LE to L LE without any buckling of his L LE to improve function and QOL. 7 weeks: Pt will demonstrate significant improvements in his L LE from baseline to 4+/5 to improve function and QOL to improve function and QOL. 7 weeks: Pt will demonstrate enough stability in his L LE to hold himself up on his motorcycle to improve function and QOL. Patient's Goals walk better, get stronger, and be able to stand without knee collapsing with motorcycle. PLAN: Patient to be seen for Manual Therapy/STM/MET Strengthening/condition Range of Motion Spinal Stabilization Work Hardening/Cond Stretching Neuromuscular Re-ed Closed Chain Program Posture/Body mechanics Gait Trg/Balance Trg Home Exercise Program Therapeutic Activities 2x/Week for 7 weeks Diana Becker APRN signature DATE ____ If you have any questions, comments, or concerns about this report or plan, please contact me at . Thank you, Trenton Valiente, PT, DPT PAMELA
--- NOTE | 2018-11-12 10:35 | PT PLAN OF CARE ---
Physician: Diana Becker APRN Patient is being seen: 2x/week Therapist: Trenton Valiente, PT, DPT Medical Diagnosis: post cva Treatment Diagnosis: same Date of Onset: 04/13/18 Date of Initial Evaluation: 09/17/18 Date patient was last seen: 11/12/18 Number of treatments: 10 Number of cancellations/No shows: 1 INTERVENTIONS: Manual Therapy/STM/MET Strengthening/condition Range of Motion Spinal Stabilization Work Hardening/Cond Stretching Neuromuscular Re-ed Closed Chain Program Posture/Body mechanics Gait Trg/Balance Trg Home Exercise Program Therapeutic Activities GOALS: 7 weeks: Pt will demonstrate significant improvements with his gait mechanics and will demonstrate equal weightbearing from the R LE to L LE without any buckling of his L LE to improve function and QOL. 7 weeks: Pt will demonstrate significant improvements in his L LE from baseline to 4+/5 to improve function and QOL to improve function and QOL. 7 weeks: Pt will demonstrate enough stability in his L LE to hold himself up on his motorcycle to improve function and QOL. PATIENT'S GOAL: walk better, get stronger, and be able to stand without knee collapsing with motorcycle. Status of Patient's Goals: Progressing well Patient Compliance: Good Prognosis: Good Reasons for continuing therapy: This is a progress note for Mitchell Hua. He reports that he is feels so much better following his fall about 20 days ago. He feels like he can move around better and continues to feel like his balance continues to not be where he feels like it should. He feels like if he is bumped by anything he would fall over. He reports that he feels like his legs are getting stronger and he is walking better as he continues to keep that as a main focus. He reports that he continues to have trouble with his knee; however, he reports that he feels like it is buckling less. He has demonstrated the following improvements: increased gait mechanics with a cane as he demonstrated increased B foot clearance, B step lengthened as they are equalized with each other as long as he uses his cane, increased weight shifting to the left, increased pelvic mobility and able to keep both hips facing forward, increased velocity, and decreased LOB throughout the session. He also demonstrated significant improvements with static balance and can perform all conditions for greater than 30 seconds but continues to struggle with eyes closed as the vestibular is engaged, which we will continue to address. He also demonstrates increased LOB with any dynamic balance, which we will continue to address. Lastly, he demonstrates significant improvements with equalized weightbearing on the his L LE as compared to his R LE, but continues to need some work with increased weightbearing on his L LE. He has made significant improvements in all categories in gait, balance, and strength, but continues to require much more physical therapy to continue to address his impairments to assist him to closer return to prior level of function. I would like to see him for at least 20 more visits if that could be [facility] to continue to address those functional impairments to improve his function and QOL. Posture: He demonstrates B rounded shoulder, increased thoracic kyphosis, and decreased lumbar lordosis ROM: B LE's: WFL's Strength: R hip flexion, extension, abduction, adduction, R knee flexion and extension, R ankle PF and DF: 4+/5. L hip flexion, abduction, extension: 4-/5. L knee flexion and extension: 4/5. L ankle PF and DF: 4-/5. Special Tests: Sit to/from standing: he demonstrated reduced weight shifting on his L LE when moving up and down (continues to have minimal decreased weight shifting but has demonstrated significant improvements with it. Mobility: Modified Independent Please sign: DATE: If you have any questions, please contact me at [phone]. Thank you, Trenton Valiente, PT, DPT PAMELA
[2018-12-13] MEDS ORDERED: SILD100T59 PO (09:21)
[2018-12-13] MEDS ORDERED: LISI-362 PO (09:27)
== END 2018-12-16 ==
LOC: PT 08:15
PROVIDERS: ATTEND Nurse Practitioner Family
DX: I69.398 Other sequelae of cerebral infarction (principal)
CPT/HCPCS: 93225; 97161

== ENCOUNTER → 2018-12-31 | Outpatient (CLI) | payer OTHER ==
[~2018-12-31] MED LIST changes: +SILD100T59 PO
[2018-12-31 10:14] LABS: PLATELET COUNT, AUTOMATED 318 K/uL (150-450)
[2018-12-31 10:36] LABS: LDL CHOLESTEROL 66 mg/dl
== END ==
LOC: LAB 09:59
PROVIDERS: ATTEND Internal Medicine
DX: I48.91 Unspecified atrial fibrillation (principal); F41.9 Anxiety disorder, unspecified; I10 Essential (primary) hypertension; I63.9 Cerebral infarction, unspecified; E78.5 Hyperlipidemia, unspecified
CPT/HCPCS: 36415; 81001; 82040; 82247; 82310; 82374; 82435; 82465; 82565; 82947; 83718; 84075; 84132; 84155; 84295; 84439; 84443; 84450; 84460; 84478; 84520; 85025

== ENCOUNTER 2019-01-23 08:15 | Outpatient (RCR) | payer OTHER ==
--- NOTE | 2018-12-18 13:28 | PT PLAN OF CARE ---
Physician: Diana Becker APRN Patient is being seen: 2x/week Therapist: Trenton Valiente, PT, DPT Medical Diagnosis: post cva Treatment Diagnosis: same Date of Onset: 04/13/18 Date of Initial Evaluation: 09/17/18 Date patient was last seen: 12/18/18 Number of treatments: 20 Number of cancellations/No shows: 1 INTERVENTIONS: Manual Therapy/STM/MET Strengthening/condition Range of Motion Spinal Stabilization Work Hardening/Cond Stretching Neuromuscular Re-ed Closed Chain Program Posture/Body mechanics Gait Trg/Balance Trg Home Exercise Program Therapeutic Activities GOALS: 7 weeks: Pt will demonstrate significant improvements with his gait mechanics and will demonstrate equal weightbearing from the R LE to L LE without any buckling of his L LE to improve function and QOL. 7 weeks: Pt will demonstrate significant improvements in his L LE from baseline to 4+/5 to improve function and QOL to improve function and QOL. 7 weeks: Pt will demonstrate enough stability in his L LE to hold himself up on his motorcycle to improve function and QOL. PATIENT'S GOAL: walk better, get stronger, and be able to stand without knee collapsing with motorcycle. Status of Patient's Goals: Progressing well Patient Compliance: Good Prognosis: Good Reasons for continuing therapy: This is a progress note for Mitchell Hua. He reports that he feels much better than he did a few days ago. He denies any recent falls. He reports that he feels like he is being more away of his movements, which is helping him reduce the numbers of falls that he has. He reports that he feels like his walking is getting slowly better. He also reports that the leg is slowly coming back to life and he would like it to come back quicker. He has demonstrated significant improvements in his gait mechanics over the last 5 weeks that include the following: decreased B shoulder dip and shift, increased L weight shift during the stance phase to increase the swing phase of his R LE, increased stability with abolished knee buckling, and increased L step clearance. We will continue to improve gait mechanics, increased L weightbearing, increase strength, and assist him to return closer to his prior level of function. Posture: He demonstrates B rounded shoulder, increased thoracic kyphosis, and decreased lumbar lordosis ROM: B LE's: WFL's Strength: R hip flexion, extension, abduction, adduction, R knee flexion and extension, R ankle PF and DF: 4+/5. L hip flexion, abduction, extension: 4-/5. L knee flexion and extension: 4/5. L ankle PF and DF: 4-/5. Special Tests: Sit to/from standing: he demonstrated reduced weight shifting on his L LE when moving up and down (continues to have minimal decreased weight shifting but has demonstrated significant improvements with it. Mobility: Modified Independent Please sign: DATE: If you have any questions, please contact me at [phone]. Thank you, Trenton Valiente, PT, DPT PAMELA
--- NOTE | 2019-01-23 14:30 | PT PLAN OF CARE ---
Physician: Diana Becker APRN Patient is being seen: [g OPPT.PTF] Therapist: Trenton Valiente, PT, DPT Medical Diagnosis: post cva Treatment Diagnosis: same Date of Onset: 04/13/18 Date of Initial Evaluation: 09/17/18 Date patient was last seen: 01/23/19 Number of treatments: 26 Number of cancellations/No shows: 0 INTERVENTIONS: Manual Therapy/STM/MET Strengthening/condition Range of Motion Spinal Stabilization Work Hardening/Cond Stretching Neuromuscular Re-ed Closed Chain Program Posture/Body mechanics Gait Trg/Balance Trg Home Exercise Program Therapeutic Activities GOALS: 7 weeks: Pt will demonstrate significant improvements with his gait mechanics and will demonstrate equal weightbearing from the R LE to L LE without any buckling of his L LE to improve function and QOL. 7 weeks: Pt will demonstrate significant improvements in his L LE from baseline to 4+/5 to improve function and QOL to improve function and QOL. 7 weeks: Pt will demonstrate enough stability in his L LE to hold himself up on his motorcycle to improve function and QOL. PATIENT'S GOAL: walk better, get stronger, and be able to stand without knee collapsing with motorcycle. Status of Patient's Goals: Progressing well Patient Compliance: Good Prognosis: Good Reasons for continuing therapy: This is a progress note/discharge note for Mitchell Hua. He reports that he feels like he is doing much better with his gait mechanics but feels like he still has a ways to go as he would like to ambulate without his assistive device. He reports that he feels like he is getting stronger and able to do more but feels like he still has some room for improvement. He reports that he would like to continue to have PT if the [place] will authorize more sessions. He demonstrates significant improvements from the last plan of care that we performed 6 sessions ago. He demonstrates significant improvements with his gait mechanics which are increased L weight shifts resulting in increased R step length, increased velocity, increased pelvic rotation, and increased step clearance B. He also demonstrates improvements with his core and L LE strength but continues to struggle with functional strength as he is unable to perform single leg squat and struggles with increased weight bearing on his L LE while moving for sitting to standing. His L knee has not buckled in the last 2-4 sessions and is doing well in that regard. He has demonstrated improvements with his endurance. I would like to continue to see him in the future for continual work on his balance, strength, gait mechanics, and endurance to return him closer to his prior level of function, if more sessions are authorized. However, since he has maxed out his visits, we will discharge until he has been authorized for more sessions. Posture: He demonstrates B rounded shoulder, increased thoracic kyphosis, and decreased lumbar lordosis ROM: B LE's: WFL's Strength: R hip flexion, extension, abduction, adduction, R knee flexion and extension, R ankle PF and DF: 4+/5. L hip flexion, abduction, extension: 4/5. L knee flexion and extension: 4+/5. L ankle PF and DF: 4/5. Special Tests: Sit to/from standing: he demonstrated reduced weight shifting on his L LE when moving up and down (continues to have minimal decreased weight shifting but has demonstrated significant improvements with it. Mobility: Modified Independent Please sign: DATE: If you have any questions, please contact me at [phone]. Thank you, Trenton Valiente, PT, DPT PAMELA
== END 2019-01-23 18:00 | disposition home or self-care (01) ==
LOC: PT 08:15
PROVIDERS: ATTEND Nurse Practitioner Family
DX: I69.398 Other sequelae of cerebral infarction (principal)

== ENCOUNTER 2019-02-05 08:15 | Outpatient (RCR) | payer OTHER ==
--- NOTE | 2018-12-05 12:26 | OT INITIAL EVALUATION ---
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 Patient was previously seen by OT services from 07/02/18-08/16/18 for 12 visits and services from 09/17-11/19 for 12 visits. Patient has been authorized for 15 more visits per his insurance carrier. Patient reports that he doesn't think that has been doing as well as he has been. Reports of increased weakness in his left hand. Patient is frustrated that he is not making progress. Shoulder surgery has been placed on hold until another follow up visit with the orthopedic surgeon which will occur in late February. 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 Right = 83.3# (Age/gender normative= 91.1#) Left=23.3# was 16.3# (Age/gender normative= 76.8#) Lateral Pinch Right = 23.3# (Age/gender normative= 23.4#) Left= 10# was 10.3# (Age/gender normative= 22#) 3 Point Pinch Right = 19.3# (Age/gender normative= 21.4#) Left= 5.7# was 6.8# (Age/gender normative= 21.2#) Sensation: continued numb along the left UE side, including face and neck temperature changes increase hypersensitivity Vision: no reports of changes in vision Special Test: 9 Hole Peg Test (dexterity) Right= 30 seconds (Age/gender normative= 20.7 seconds) Left= 2 minutes and 40 seconds, was 2 minutes and 39 seconds (Age/gender normative= 22.9 seconds) modified by having the right hand place the peg in the left hand in order to complete the test ASSESSMENT Patient continues to demonstrate with decreased AROM of the left UE-this movement is affected by a 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 Patient has seen his orthopedic surgeon and the plan is to place the surgery for the left shoulder on hole until another follow up visit in late February. 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 Patient showed some area of improvement and some area of no changes in improvement The decrease in strength and coordination does have affected on the patient's independence with his ADLs and IADLs. Patient would benefit from skilled OT visits to increase functional use of the left hand. 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 2.Patient will increase left lateral pinch by 2 # in order to open up containers. 3.Patient will completed the 9 Hole Peg test with the left hand at 2 minutes in order to complete ADLs in a timely manner. PLAN: Plan to see patient 2 times a week for a total of 15 visits which includes the initial evaluation and re-evaluation. Plan of care to include: ther ex, ther act, neuro-reeducation, Thank you for this referral. If you have any questions, concerns, or comments about this report or plan, please contact me at [phone]. Elaine Stark MS, OTR/L Occupational Therapist Provider Signature Date MTDD
--- NOTE | 2019-02-05 10:14 | OT DISCHARGE SUMMARY ---
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 Patient was previously seen by OT services from 07/02/18-08/16/18 for 12 visits and services from 09/17-11/19 for 12 visits. Patient has been authorized for 15 more visits per his insurance carrier. Patient was seen for 14/15 treatment sessions, the last session patient was unable to attend and needed to cancel due to an unexpected in the family. Reports of increased tingling in his left hand. Shoulder surgery has been placed on hold until another follow up visit with the orthopedic surgeon which will occur in late February. 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 = 83.3#, now 94.7# (Age/gender normative= 91.1#) Left=23.3# was 16.3#, now 30.3# (Age/gender normative= 76.8#) Lateral Pinch Right = 23.3#, now 24.8# (Age/gender normative= 23.4#) Left= 10# was 10.3#, now 13.7# (Age/gender normative= 22#) 3 Point Pinch Right = 19.3#, now 21.3# (Age/gender normative= 21.4#) Left= 5.7# was 6.8#, now 9.3# (Age/gender normative= 21.2#) Sensation: continued numb along the left UE side, including face and neck temperature changes increase hypersensitivity Vision: no reports of changes in vision Special Test: 9 Hole Peg Test (dexterity) Right= 30 seconds, now 27 seconds (Age/gender normative= 20.7 seconds) Left= 2 minutes and 40 seconds, was 2 minutes and 39 seconds, now 2min and 15 seconds (Age/gender normative= 22.9 seconds) modified by having the right hand place the peg in the left hand in order to complete the test ASSESSMENT Patient continues to demonstrate with decreased AROM of the left UE-this movement is affected by a 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 Patient has seen his orthopedic surgeon and the plan is to place the surgery for the left shoulder on hole until another follow up visit in late February. Patient continues to demonstrate with and increase audio director and pinch strength and but still has deficits in fine motor coordination of the left hand. Patient has shown areas of improvement in regards to strength. The decrease in fine motor coordination does affect the patient's independence with his ADLs and IADLs. Patient would benefit from more additional skilled OT visits to continue to increase functional use of the left hand. Short Term Goals 1.Patient will increase audio director strength on the left hand by 5# in order to hold objects with the left hand. met 2.Patient will increase left lateral pinch by 2 # in order to open up containers. met 3.Patient will completed the 9 Hole Peg test with the left hand at 2 minutes in order to complete ADLs in a timely manner. not met PLAN: Plan to discharge patient at this time. Will await for the approval of additional treatment sessions. Thank you for this referral. If you have any questions, concerns, or comments about this report or plan, please contact me at [phone]. Elaine Stark MS, OTR/L Occupational Therapist [email or web address]
== END 2019-02-05 10:48 | disposition home or self-care (01) ==
LOC: OT 08:15
PROVIDERS: ATTEND Nurse Practitioner Family
DX: I69.398 Other sequelae of cerebral infarction (principal)
CPT/HCPCS: 97165; 97168